=== PATIENT | female | born 1955 | race Caucasian/White ===

== ENCOUNTER 2022-01-14 08:53 | Emergency (ER) | payer MEDICARE, BC, SELFPAY ==
[2022-01-14 08:58] VITALS: BP 166/86; PULSE 99; RESP 18; TEMP 36.3; O2SAT 98; BMI 22.8
[2022-01-14 09:00] VITALS: BP 147/93; PULSE 100; RESP 18; O2SAT 99
--- NOTE | 2022-01-14 09:02 | ED.GENADULT ---
HPI - General Adult General Time Seen by Provider: 09:02 Date Seen: 01/14/22 Chief complaint: Dizziness/Vertigo Stated complaint: Vertigo Time Seen by Provider: 01/14/22 09:01 Source: patient, RN notes reviewed and old records reviewed Mode of arrival: ambulatory Limitations: no limitations History of Present Illness HPI narrative: 66-year-old female who presents today with dizziness. This is been gradually coming on for the last week or so. She notes room spinning dizziness when she turns her head to the right or lays flat. She has nausea with this. It does extinguish. She took some Dramamine which is helped her symptoms. She denies headache, head injury, numbness or tingling in the arms or legs, weakness. She denies chest pain or palpitations. She has had similar in the past. She denies any ringing in the ears, does note she had her ears cleaned out earlier in the week and when she was turning her head to position had dizziness at that time. Related Data Home Medications Medication Instructions Recorded Confirmed atorvastatin 20 mg tablet mg 01/14/22 lisinopril 10 mg tablet mg 01/14/22 Previous Rx's Medication Instructions Recorded meclizine 25 mg tablet 25 mg PO QID PRN #20 tab NS 01/14/22 ondansetron 4 mg disintegrating 4 mg PO Q6H PRN #20 tab 01/14/22 tablet Allergies Allergy/AdvReac Type Severity Reaction Status Date / Time No Known Drug Allergies Allergy Verified 01/14/22 09:02 Review of Systems Status of ROS: Reports: 10 or more systems reviewed and unremarkable except as noted in History and below PFSH PFS Medical History (Updated 01/14/22 @ 09:25 by Edmar Thurman MD) Hyperlipidemia Hypertension Vertigo Surgical History (Updated 01/14/22 @ 09:04 by Ann Wu RN) History of delivery History of tonsillectomy Social History Smoking Status: Former smoker How often do you have a drink containing alcohol: never AUDIT-C Alcohol total score: 0 Non-prescribed substance use: denies use Exam Const: Vital Signs, click to edit/add: Vital Signs - 24 hr 01/14/22 08:58 01/14/22 09:00 01/14/22 09:30 Temperature 97.4 F L Pulse Rate [Pulse Oximeter] 99 100 98 Respiratory Rate 18 18 18 Blood Pressure [Ri ght Upper Arm] 166/86 H 147/93 H 136/84 Pulse Oximetry 98 99 99 Documenting provider has reviewed patient's vital signs: yes Common normals: no apparent distress, oriented x3, alert and well nourished HENMT: Common normals: normocephalic, head/scalp atraumatic, external ears normal and external nose normal Head and scalp: normocephalic and atraumatic Nose: external nose normal External ear: external ears normal Eye: Common normals: PERRL and conjunctivae normal Conjunctiva: conjunctiva(e) normal Pupil: PERRL Neck & C-Spine: Common normals: full ROM, no lymphadenopathy and supple Chest: Common normals: palpation of chest normal Resp: Common normals: normal respiratory effort and clear to auscultation bilaterally Auscultation: clear to auscultation bilaterally Cardio: Common normals: regular rate, regular rhythm and no murmurs Rate: regular rate Rhythm: regular rhythm GI: Common normals: Normal to inspection, nondistended, normoactive bowel sounds present, soft to palpation and non-tender Palpation: soft : Common normals: no CVA tenderness Bladder/kidney exam: no CVA tenderness Back & Pelvis: Common normals: no CVA tenderness and thoracic and lumbar spine normal to inspection Extremity: Common normals: normal to inspection, full ROM and no pedal edema Neuro: Common normals: oriented x3, CN's II-XII intact bilaterally and no focal motor deficits Sensorium/orientation: alert Psych: Common normals: mental status grossly normal Skin: Common normals: no rashes or lesions noted General skin exam: no rashes or lesions noted Course Reevaluation(s) Reevaluation #1: EKG reassuring. Labs and CT scan are pending. Time: 09:53 Reevaluation #2: Head CT is negative for acute intracranial findings, labs are reassuring. Patient is stable for discharge with continued symptom management. Time: 10:07 Vital Signs Vital signs: Initial Vital Signs Temperature 97.4 F L 01/14/22 08:58 Temperature Source Temporal Artery Scan 01/14/22 08:58 Pulse Rate 99 01/14/22 08:58 Respiratory Rate 18 01/14/22 08:58 Blood Pressure 166/86 H 01/14/22 08:58 Blood Pressure Mean 112 01/14/22 08:58 Blood Pressure Position Supine 01/14/22 08:58 Pulse Oximetry 98 01/14/22 08:58 Oxygen Delivery Method 01/14/22 08:58 Vital Signs Temperature 97.4 F L 01/14/22 08:58 Pulse Rate 99 01/14/22 08:58 Respiratory Rate 18 01/14/22 08:58 Blood Pressure 166/86 H 01/14/22 08:58 Pulse Oximetry 98 01/14/22 08:58 Temperature 97.4 F L 01/14/22 08:58 Pulse Rate 98 01/14/22 09:30 Respiratory Rate 18 01/14/22 09:30 Blood Pressure 136/84 01/14/22 09:30 Pulse Oximetry 99 01/14/22 09:30 Medical Decision Making MDM Narrative Medical decision making narrative: Patient seen and examined, prior records reviewed. Differential diagnosis includes but not limited to acute CVA, BPPV, labyrinthitis, Meniere's disease, vestibular neuritis, migraine, viral syndrome, multiple sclerosis. Patient presents with room spinning dizziness which is positional and extinguishes. She has had similar in the past. Symptoms improved after Dramamine at home. Symptoms are most likely related to peripheral vertigo. Head CT is ordered along with labs to evaluate for electrolyte problems. No chest pain or palpitations, heart is regular although mildly tachycardic, patient describes room spinning dizziness with head position not lightheadedness or near syncope/presyncope. Medical Records Medical records reviewed: Yes I reviewed the patient's medical records Lab Data Lab results reviewed: Yes I reviewed the patient's lab results Labs: Lab Results 01/14/22 Range/Units 09:38 Sodium 142 (135-149) mmol/L Potassium 3.8 (3.6-5.1) mmol/L Chloride 108 (96-114) mmol/L Carbon Dioxide 30 (20-32) mmol/L BUN 16 (7-30) mg/dL Creatinine 0.7 (0.5-1.5) mg/dL Estimated Creat Clear 46.50 Estimated GFR 94 ml/min Glucose 107 (60-115) mg/dL Calcium 9.7 (8.4-10.6) mg/dL Magnesium Cancelled ECG Data Attestation: I personally reviewed and interpreted this ECG as follows: Prior ECG tracings: not available for review Interpretation: Performed at 9:32 a.m. demonstrates sinus rhythm rate 80, nonspecific ST changes, no acute ischemic changes, normal intervals, normal axis, QTC 465, GA 152. No prior for comparison. Discharge Plan Discharge Clinical Impression: Peripheral vertigo Patient Disposition: Home, Self-Care Condition: Improved Instructions: Vertigo (ED) Additional Instructions: Discussed particle repositioning procedure with your daughter. Continue Dramamine or meclizine for dizziness, Zofran if needed for nausea and dizziness. Follow-up with your doctor this week for further evaluation and treatment. Activity Level: No Restrictions Discharge Diet: Regular Prescriptions: New meclizine 25 mg tablet 25 mg PO QID PRN (Reason: dizziness) Qty: 20 0RF ondansetron 4 mg tablet,disintegrating 4 mg PO Q6H PRN (Reason: dizziness or vertigo) Qty: 20 0RF No Action atorvastatin 20 mg tablet 0RF Label Comments: TAKE 1 TABLET BY MOUTH EVERY NIGHT AT BEDTIME lisinopril 10 mg tablet 0RF Stand Alone Forms: [employer] Info Instructions
--- NOTE | 2022-01-14 09:18 | CRLHL7_ITS ---
For Patients: As a result of the Century Cures Act, medical imaging exams and procedure reports are released immediately into your electronic medical record. You may view this report before your referring provider. If you have questions, please contact your health care provider. Indication: Vertigo Technique: Noncontrast head CT Comparison: No comparison Findings: Axial noncontrast images the brain demonstrate no acute intracranial hemorrhage or mass. No midline shift no abnormal extra-axial air fluid collections are seen. Skull and scalp are unremarkable. Impression: No acute intracranial hemorrhage or mass. Please note that all CT scans at this facility use dose modulation, iterative reconstruction, and/or weight-based dosing when appropriate to reduce radiation dose to as low as reasonably achievable. Dictated by Sharee Olson MD @ 01/14/2022 10:02:56 AM (Electronically Signed)
[2022-01-14 09:30] VITALS: BP 136/84; PULSE 98; RESP 18; O2SAT 99
[2022-01-14] MEDS: MECLIZINE HCL 25 MG TABLET PO (09:40)
[2022-01-14] MEDS: ONDANSETRON ODT 4 MG TAB PO (09:40)
[2022-01-14 09:56] LABS: Chloride* 108 mmol/L (96-114)
[2022-01-14 09:57] LABS: Potassium* 3.8 mmol/L (3.6-5.1); Sodium* 142 mmol/L (135-149)
[2022-01-14 09:59] LABS: Creatinine* 0.7 mg/dL (0.5-1.5); Estimated Glomerular Filt Rate 94 ml/min
[2022-01-14 10:00] LABS: Blood Urea Nitrogen* 16 mg/dL (7-30); Calcium* 9.7 mg/dL (8.4-10.6); Carbon Dioxide* 30 mmol/L (20-32); Glucose* 107 mg/dL (60-115)
== END 2022-01-14 11:11 | disposition home or self-care (01) ==
LOC: ED 09:58
PROVIDERS: Emergency Provider Family Medicine; PCP Family Medicine
DX: R42 Dizziness and giddiness (principal)
CPT/HCPCS: 36415; 70450; 80048; 83735; 93005; 99284; A9270

== ENCOUNTER 2022-03-26 07:08 | Outpatient (CLI) | payer MEDICARE, BC, SELFPAY ==
--- NOTE | 2022-03-26 08:40 | W.ANESCHARGE ---
Anesthesia Charges Start Date/Time Anesthesia Start Date: 03/26/22 Anesthesia Start Time: 08:10 Stop Date/Time Anesthesia Stop Date: 03/26/22 Anesthesia Stop Time: 08:35 Summary Emergency: No
--- NOTE | 2022-03-26 09:22 | W.ANESCHARGE ---
Anesthesia Charges Start Date/Time Anesthesia Start Date: 03/26/22 Anesthesia Start Time: 08:10 Stop Date/Time Anesthesia Stop Date: 03/26/22 Anesthesia Stop Time: 08:35 Summary Emergency: No
== END 2022-03-26 07:09 | disposition home or self-care (01) ==
LOC: OP CLINIC 07:09
PROVIDERS: PCP Family Medicine; Visit Provider Internal Medicine Gastroenterology
DX: Z12.11 Encounter for screening for malignant neoplasm of colon (principal); K57.30 Diverticulosis of large intestine without perforation or abscess without bleeding; Q43.8 Other specified congenital malformations of intestine; Z85.038 Personal history of other malignant neoplasm of large intestine
CPT/HCPCS: 00812; 45378

== ENCOUNTER 2022-06-26 19:37 | Emergency (ER) | payer MEDICARE, BC, SELFPAY ==
[2022-06-26 19:42] VITALS: BP 179/83; PULSE 88; RESP 16; TEMP 36.7; O2SAT 98; BMI 23.2
--- NOTE | 2022-06-26 19:50 | ED.GENADULT ---
HPI - General Adult General Time Seen by Provider: 19:50 Date Seen: 06/26/22 Chief complaint: Ear/Nose/Throat Problem Stated complaint: Hearing aid piece stuck in left ear Time Seen by Provider: 06/26/22 19:42 Source: patient Mode of arrival: ambulatory Limitations: no limitations History of Present Illness HPI narrative: 67-year-old female who comes in with concern of a left ear foreign body. She reports when she took her hearing aid out the rubber cone stated in her ear. No other concerns today. Related Data Home Medications Medication Instructions Recorded Confirmed atorvastatin 20 mg tablet mg 01/14/22 lisinopril 10 mg tablet mg 01/14/22 Previous Rx's Medication Instructions Recorded meclizine 25 mg tablet 25 mg PO QID #20 tabs 01/14/22 meclizine 25 mg tablet 25 mg PO QID PRN dizziness #20 tabs 01/14/22 ondansetron 4 mg disintegrating 4 mg PO Q6H PRN dizziness or 01/14/22 tablet vertigo #20 tabs ondansetron 4 mg disintegrating 4 mg PO Q6H PRN vertigo #20 tabs 01/14/22 tablet Allergies Allergy/AdvReac Type Severity Reaction Status Date / Time No Known Drug Allergies Allergy Verified 01/14/22 09:02 Review of Systems Status of ROS: Reports: 10 or more systems reviewed and unremarkable except as noted in History and below [facility] Medical History (Updated 06/26/22 @ 19:49 by Edmar Thurman MD) Hyperlipidemia Hypertension Vertigo Surgical History (Updated 01/14/22 @ 09:04 by Ann Wu RN) History of delivery History of tonsillectomy Social History Smoking Status: Former smoker How often do you have a drink containing alcohol: never AUDIT-C Alcohol total score: 0 Non-prescribed substance use: denies use Exam Narrative: Exam Narrative: Mcgraw foreign body in left external auditory canal Const: Vital Signs, click to edit/add: Vital Signs - 24 hr 06/26/22 19:42 Temperature 98.1 F Pulse Rate [Left P ulse Oximeter] 88 Respiratory Rate 16 Blood Pressure [Ri ght Upper Arm] 179/83 H Pulse Oximetry 98 Oxygen Delivery Me thod Room Air Course Course Hospital Course: Patient seen examined. On exam, there is a mcgraw foreign body in the left ear. This is removed with an alligator forceps. After examination, no trauma and no other foreign bodies seen, small amount of cerumen. Vital Signs Vital signs: Initial Vital Signs Temperature 98.1 F 06/26/22 19:42 Temperature Source Temporal Artery Scan 06/26/22 19:42 Pulse Rate 88 06/26/22 19:42 Respiratory Rate 16 06/26/22 19:42 Blood Pressure 179/83 H 06/26/22 19:42 Blood Pressure Mean 115 06/26/22 19:42 Blood Pressure Position Sitting 06/26/22 19:42 Pulse Oximetry 98 06/26/22 19:42 Oxygen Delivery Method 06/26/22 19:42 Vital Signs Temperature 98.1 F 06/26/22 19:42 Pulse Rate 88 06/26/22 19:42 Respiratory Rate 16 06/26/22 19:42 Blood Pressure 179/83 H 06/26/22 19:42 Pulse Oximetry 98 06/26/22 19:42 Oxygen Delivery Method 06/26/22 19:42 Temperature 98.1 F 06/26/22 19:42 Pulse Rate 88 06/26/22 19:42 Respiratory Rate 16 06/26/22 19:42 Blood Pressure 179/83 H 06/26/22 19:42 Pulse Oximetry 98 06/26/22 19:42 Oxygen Delivery Method 06/26/22 19:42 Medical Decision Making Medical Records Medical records reviewed: Yes I reviewed the patient's medical records Lab Data Lab results reviewed: Yes I reviewed the patient's lab results Discharge Plan Discharge Clinical Impression: Acute foreign body of left ear canal Patient Disposition: Home, Self-Care Condition: Improved Instructions: Ear Foreign Body (ED) Activity Level: No Restrictions Discharge Diet: Regular Prescriptions: No Action atorvastatin 20 mg tablet Label Comments: TAKE 1 TABLET BY MOUTH EVERY NIGHT AT BEDTIME lisinopril 10 mg tablet meclizine 25 mg tablet 25 mg PO QID PRN (Reason: dizziness) Qty: 20 0RF ondansetron 4 mg tablet,disintegrating 4 mg PO Q6H PRN (Reason: dizziness or vertigo) Qty: 20 0RF meclizine 25 mg tablet 25 mg PO QID Qty: 20 0RF ondansetron 4 mg tablet,disintegrating 4 mg PO Q6H PRN (Reason: vertigo) Qty: 20 0RF Follow Up/Referrals: Gabriela Keen MD [Primary Care Provider] - Stand Alone Forms: [employer] Info Instructions
== END 2022-06-26 19:59 | disposition home or self-care (01) ==
LOC: ED 19:58
PROVIDERS: Emergency Provider Family Medicine; PCP Family Medicine
DX: T16.2XXA Foreign body in left ear, initial encounter (principal)
CPT/HCPCS: 99282; 99283